=== PATIENT | female | born 1955 | race Caucasian/White ===

== ENCOUNTER 2017-12-04 19:27 | Inpatient (IN) | payer MEDICAID ==
[~2017-12-04] VITALS: Ht 152.4 cm; Wt 55.3 kg
[~2017-12-04 19:27] MED LIST: ABILIFY 2 MG2 M1 PO; ACCOLATE10 MG PO; ADVAIR 250-501 EACH INH; AMBIEN 5 MG TABL5 M1 PO; AMITRIPTYLINE H25 M2 PO; ATORVASTATIN CA20 MG PO; BUSPIRONE HCL7.5 MG PO; CARVEDILOL12.5 MG PO; CEPHALEXIN 250250 MG PO; CLONIDINE HCL0.3 M2 PO; GLUMETZA500; HYDRALAZINE 2525 MG PO; K-DUR10 MEQ PO; LASIX 40 MG TAB40 M2 PO; LORAZEPAM 0.50.5 MG PO; PERCOCET 5-3251 EACH PO; PREDNISONE 20 M20 MG PO; REGLAN 5 MG TAB5 M1 GT; SKELAXIN 800 M800 M1 PO; SPIRIVA INH; VERAPAMIL ER240 MG PO; VIIBRYD40 MG PO; VITAMIN D1000 UNI1 PO; [UNRECOGNIZED DRUG - OTHER] PO
[2017-12-04 19:41] VITALS: BP 196/103
[2017-12-04 20:06] LABS: ABSOLUTE BASOPHILS 0.1 thou/uL (0.0-0.2); ABSOLUTE EOSINOPHILS 0.1 thou/uL (0.0-0.7); ABSOLUTE LYMPHOCYTES 1.1 thou/uL (0.8-5.3); ABSOLUTE MONOCYTES 0.6 thou/uL (0.0-1.2); ABSOLUTE NEUTROPHILS 9.3 thou/uL (1.6-8.1); BASOPHILS 0.8 %; HEMATOCRIT 32.8 % (37.0-47.0); MCH 30.4 pg (26.0-34.0); MCHC 33.4 g/dL (28.0-37.0); MCV 90.9 fL (80.0-100.0); MONOCYTES 5.2 %; MPV 7.5 fl. (7.2-11.1); NUCLEATED RBCS 0 /100WBC; PLATELET COUNT* 235 thou/uL (150-400); RBC 3.61 mil/uL (4.20-5.00); RDW-CV 14.4 % (10.5-14.5); WBC 11.1 thou/uL (4.0-11.0)
[2017-12-04 20:17] LABS: PROTIME 9.4 Seconds (9.20-11.50)
[2017-12-04 20:19] LABS: CALCIUM 8.7 mg/dL (8.5-10.1); CREATININE 1.7 mg/dL (0.6-1.3); POTASSIUM 4.5 mmol/L (3.5-5.1)
[2017-12-04 20:24] LABS: ALBUMIN 3.4 g/dL (3.4-5.0); TOTAL BILIRUBIN 0.4 mg/dL (<0.1-1.0); TOTAL PROTEIN 6.8 g/dL (6.4-8.2)
[2017-12-04] MEDS ORDERED: NORCO 7.5-3251 EACH PO (20:34)
[2017-12-04 22:30] VITALS: BP 154/98
[2017-12-04 23:50] VITALS: BP 190/99
[2017-12-05 00:15] VITALS: BP 169/91
[2017-12-05 08:00] VITALS: BP 153/93
[2017-12-05 16:00] VITALS: BP 70/44
[2017-12-05 16:15] VITALS: BP 75/48
[2017-12-06 00:17] VITALS: BP 76/40
[2017-12-06 04:17] LABS: HEMATOCRIT 22.8 % (37.0-47.0); MCH 30.9 pg (26.0-34.0); MCHC 33.4 g/dL (28.0-37.0); MCV 92.2 fL (80.0-100.0); MPV 8.4 fl. (7.2-11.1); RBC 2.47 mil/uL (4.20-5.00); RDW-CV 15.3 % (10.5-14.5); WBC 4.3 thou/uL (4.0-11.0)
[2017-12-06 04:38] LABS: HEMOGLOBIN 7.6 gm/dL (12.0-15.0)
[2017-12-06 04:44] LABS: CALCIUM 7.7 mg/dL (8.5-10.1); CREATININE 2.4 mg/dL (0.6-1.3); POTASSIUM 5.2 mmol/L (3.5-5.1)
[2017-12-06 05:20] VITALS: BP 95/54
[2017-12-06 08:30] VITALS: BP 119/63
--- NOTE | 2017-12-06 15:34 | 2DMMODE ---
[place] [address] 2 D/M-MODE ECHOCARDIOGRAM Name: KEYANA MATTHEWS Room: [address] IN [facility]#: [id number] Admission: 12/04/17 Attend Phys: Ken Medina Discharge: Date of : 53 Date of Service: 12/06/17 1534 Report #: [id number] THIS REPORT FOR: //name// APPROVED REPORT Study performed: 12/06/2017 09:40:49 EXAM: Comprehensive 2D, Doppler, and color-flow Echocardiogram Patient Location: In-Patient Room #: [facility] Status: routine BSA: 1.51 HR: 87 bpm BP: 95/54 mmHg Rhythm: NSR Other Information Study Quality: Good Indications Pre-Op COPD 2D Dimensions LVEF(%): 68.36 (>50%) IVSd: 11.58 (7-11mm) LVOT Diam: 19.17 (18-24mm) LVDd: 32.23 mm PWd: 11.99 (7-11mm) Ascending Ao: 36.03 (22-36mm) LVDs: 20.28 (25-40mm) Aortic Root: 31.95 mm Jack's LVEF: 68.36 % Volumes Left Atrial Volume (Systole) LA ESV Index: 35.20 mL/m2 Aortic Valve AoV Peak Navid.: 1.88 m/s AO Peak Gr.: 14.17 mmHg LVOT Max P.55 mmHg AO Mean Gr.: 7.22 mmHg LVOT Mean P.99 mmHg LVOT Max V: 1.18 m/s AO V2 VTI: 34.57 cm LVOT Mean V: 0.81 m/s [place] (VTI): 2.00 cm2 LVOT V1 VTI: 23.93 [place] [address] 2 D/M-MODE ECHOCARDIOGRAM Name: KEYANA MATTHEWS Room: [address] .R.#: [id number] Admission: 12/04/17 Attend Phys: Ken Medina Discharge: Date of : 53 Date of Service: 12/06/17 1534 Report #: [id number] E/A Ratio: 1.19 MV Decel. Time: 202.13 ms MV E Max Navid.: 1.25 m/s MV PHT: 58.62 ms MVA (PHT): 3.75 cm2 TDI E/Lateral E': 11.36 E/Medial E': 8.33 Medial E' Navid.: 0.15 m/s Lateral E' Navid.: 0.11 m/s Pulmonary Valve PV Peak Navid.: 0.93 m/s PV Peak Gr.: 3.45 mmHg Tricuspid Valve TR Peak Gr.: 40.55 mmHg RVSP: 45.00 mmHg Left Ventricle The left ventricle is normal size. There is normal LV segmental wall motion. There is normal left ventricular wall thickness. Left ventricular systolic function is normal. The left ventricular ejection fraction is within the normal range. LVEF is 65-70%. The left ventricular diastolic function is normal. Right Ventricle The right ventricle is normal size. The right ventricular systolic function is normal. Atria Left atrium is at the upper limits of normal. The right atrium size is normal. Aortic Valve Mild aortic valve sclerosis. No aortic regurgitation is present. There is no aortic valvular stenosis. Mitral Valve There is mitral annular calcification. Trace mitral regurgitation. No evidence of mitral valve stenosis. Tricuspid Valve The tricuspid valve is normal in structure. Trace tricuspid regurgitation. Pulmonic Valve The pulmonary valve is normal in structure. [place] [address] 2 D/M-MODE ECHOCARDIOGRAM Name: CASSIEKEYANA Carrasco Room: [address] [place] [facility]#: [id number] Admission: 12/04/17 Attend Phys: Ken Medina Discharge: Date of : 53 Date of Service: 12/06/17 1534 Report #: [id number] valvular regurgitation. Great Vessels The aortic root is normal in size. IVC is normal in size and collapses with >50% inspiration Pericardium There is no pericardial effusion. <Conclusion> The left ventricle is normal size. There is normal left ventricular wall thickness. Left ventricular systolic function is normal. The left ventricular ejection fraction is within the normal range. LVEF is 65-70%. The right ventricle is normal size. Left atrium is at the upper limits of normal. Mild aortic valve sclerosis. There is mitral annular calcification. Trace mitral regurgitation. The tricuspid valve is normal in structure. Trace tricuspid regurgitation. IVC is normal in size and collapses with >50% inspiration There is no pericardial effusion. There is normal LV segmental wall motion. <ELECTRONICALLY SIGNED> By: Olvin Green MD, FACC 12/06/17 1534 [id number] Olvin Green MD, FACC /INF
[2017-12-06 16:00] VITALS: BP 120/64
[2017-12-06 21:20] VITALS: BP 144/76
[2017-12-07 00:10] VITALS: BP 166/90
[2017-12-07 04:31] VITALS: BP 139/88
[2017-12-07 04:56] LABS: HEMATOCRIT 25.1 % (37.0-47.0); HEMOGLOBIN 8.8 gm/dL (12.0-15.0); MCH 31.8 pg (26.0-34.0); MCV 90.8 fL (80.0-100.0); MPV 8.5 fl. (7.2-11.1); RBC 2.76 mil/uL (4.20-5.00); WBC 4.6 thou/uL (4.0-11.0)
[2017-12-07 05:07] LABS: CALCIUM 8.2 mg/dL (8.5-10.1); MAGNESIUM 1.5 mg/dL (1.8-2.4); POTASSIUM 5.2 mmol/L (3.5-5.1)
[2017-12-07 08:28] VITALS: BP 126/72
[2017-12-07 16:00] VITALS: BP 130/79
[2017-12-07 20:00] VITALS: BP 159/95
[2017-12-08 04:27] LABS: HEMATOCRIT 25.2 % (37.0-47.0); HEMOGLOBIN 8.7 gm/dL (12.0-15.0); MCH 31.2 pg (26.0-34.0); MCHC 34.7 g/dL (28.0-37.0); MCV 90.1 fL (80.0-100.0); MPV 8.3 fl. (7.2-11.1); RBC 2.8 mil/uL (4.20-5.00); RDW-CV 15.3 % (10.5-14.5)
[2017-12-08 04:55] LABS: CALCIUM 8.2 mg/dL (8.5-10.1); CREATININE 1.5 mg/dL (0.6-1.3); MAGNESIUM 1.9 mg/dL (1.8-2.4); POTASSIUM 5.8 mmol/L (3.5-5.1)
[2017-12-08 09:03] VITALS: BP 132/77
[2017-12-08] MEDS ORDERED: LIDOPATCH1 EACH TOP (09:38)
[2017-12-08] MEDS ORDERED: TRAMADOL 50 MG50 MG PO (09:38)
[2017-12-08] MEDS ORDERED: FERREX 150 PLU1 EAC1 PO (09:38)
[2017-12-08] MEDS ORDERED: NORCO 7.5-3251 EACH PO (09:38)
[2017-12-08] MEDS ORDERED: LEVAQUIN 500 M500 M2 PO (09:40)
[2017-12-08 10:26] VITALS: BP 132/77
== END 2017-12-08 16:40 | disposition home or self-care (01) | DRG 563 ==
LOC: M.ERS 19:27 → M.ORTHSURG 21:26 → M.TBA-ER 21:26 → M.ORTHSURG 23:12 → M.3W 23:13 → M.ORTHSURG 12-06 08:15
PROVIDERS: Emergency Medicine; Internal Medicine; ADMIT Family Medicine
DX: S42.292A Other displaced fracture of upper end of left humerus, initial encounter for closed fracture (principal); X58.XXXA Exposure to other specified factors, initial encounter; I25.10 Atherosclerotic heart disease of native coronary artery without angina pectoris; E11.22 Type 2 diabetes mellitus with diabetic chronic kidney disease; N18.9 Chronic kidney disease, unspecified; I12.9 Hypertensive chronic kidney disease with stage 1 through stage 4 chronic kidney disease, or unspecified chronic kidney disease; J44.9 Chronic obstructive pulmonary disease, unspecified; W18.39XA Other fall on same level, initial encounter; D63.8 Anemia in other chronic diseases classified elsewhere; Y93.89 Activity, other specified; Y92.89 Other specified places as the place of occurrence of the external cause; Y99.8 Other external cause status; Z88.5 Allergy status to narcotic agent; Z86.73 Personal history of transient ischemic attack (TIA), and cerebral infarction without residual deficits